=== PATIENT | female | born 1960 | race Asian ===

== ENCOUNTER 2018-10-08 06:15 | Inpatient (IN) | payer OTHER ==
[2018-09-20 09:37] LABS: ABSOLUTE EOSINOPHILS 0.1 thou/uL (0.0-0.7); ABSOLUTE LYMPHOCYTES 1.7 thou/uL (0.8-5.3); ABSOLUTE MONOCYTES 0.5 thou/uL (0.0-1.2); ABSOLUTE NEUTROPHILS 2.8 thou/uL (1.6-8.1); BASOPHILS 0.9 %; EOSINOPHILS 2.4 %; HEMATOCRIT 42.8 % (37.0-47.0); HEMOGLOBIN 14.5 gm/dL (12.0-15.0); LYMPHOCYTES 32.5 %; MCH 30.4 pg (26.0-34.0); MCHC 33.9 g/dL (28.0-37.0); MCV 89.8 fL (80.0-100.0); MONOCYTES 9.1 %; MPV 7.6 fl. (7.2-11.1); NUCLEATED RBCS 0 /100WBC; PLATELET COUNT* 275 thou/uL (150-400); POLYS 55.1 %; RBC 4.77 mil/uL (4.20-5.00); RDW-CV 12.9 % (10.5-14.5); WBC 5.1 thou/uL (4.0-11.0)
[2018-09-20 09:42] LABS: CALCIUM 8.9 mg/dL (8.5-10.1); POTASSIUM 3.8 mmol/L (3.5-5.1)
[2018-09-20 09:43] LABS: APTT 28.5 Seconds (25.0-31.3)
[2018-09-20 09:52] LABS: ALBUMIN 3.5 g/dL (3.4-5.0); TOTAL BILIRUBIN 0.4 mg/dL (<0.1-1.0); TOTAL PROTEIN 7.4 g/dL (6.4-8.2)
[2018-09-20 10:36] LABS: ESR (SEDRATE) 27 mm/hr (0-30)
--- NOTE | 2018-09-20 12:24 | EKG ---
[place] [address] ELECTROCARDIOGRAM REPORT Name: KELLY NELSON Room: PRE [facility].R.#: [id number] Admission: Attend Phys: Skyler Messina DO Discharge: Date of : 60 Report #: [id number] THIS REPORT FOR: //name// [facility] Test Date: 2018-09-20 Test Time: 09:36:45 Pat Name: KELLY NELSON Department: Room: Gender: F Content Administrator: : 1960 Requested By: Skyler Messina Order Number: [id number] Reading MD: Skyler Trevizo Measurements Intervals [place] Rate: 74 P: 46 NE: 166 QRS: 75 QRSD: 80 T: 20 QT: 378 QTc: 420 Interpretive Statements Sinus rhythm No previous ECG available for comparison Electronically Signed On 09-20-2018 12:24:29 OPERATING ROOM SURGICAL TECHNICIAN by Skyler Trevizo [email or web address] <ELECTRONICALLY SIGNED> By: Skyler Trevizo MD, [facility] 09/20/18 1224 0936 0936 Skyler Trevizo MD, FACC /EPI
[2018-09-20 21:07] LABS: GLYCOHEMOGLOBIN (HGB A1C) 5.4 % (4.8-5.6)
[~2018-10-08] VITALS: Ht 165.1 cm; Wt 136.5 kg
[2018-10-08 06:45] VITALS: BP 147/90
[2018-10-08 11:29] VITALS: BP 166/79
[2018-10-08 17:09] VITALS: BP 135/65
--- NOTE | 2018-10-08 19:07 | NUR ---
PATIENT ARRIVED TO UNIT AT 1115. ALERT AND ORIENTED X4. IV IS PATENT AND INFUSING. PAIN BEING MANAGED WITH MEDICATION GIVEN IN PACU. ANABELL HOSE IN PLACE. CAP-NO IN PLACE. POLAR CARE IN PLACE. VSS ON 3L O2. CALL LIGHT IS WITHIN REACH. NURSING WILL CONTINUE TO MONITOR.
--- NOTE | 2018-10-08 19:09 | NUR ---
ALERT AND ORIENTED X4. UP WITH ASSIST X1 WITH WALKER AND GAIT BELT. IV IS PATENT AND INFUSING. PAIN BEING MANAGED WITH PO PAIN MEDICATION. DENIES NAUSEA. TOLERATING DIET. ATTENDED PHYSICAL THERAPY THIS AFTERNOON. ANABELL HOSE IN PLACE BILATERALLY. CAP-NO IN PLACE. POLAR CARE IN PLACE. CPM IN ROOM. VSS ON ROOM AIR. HOURLY ROUNDS HAVE BEEN MAINTAINED THROUGHOUT SHIFT. CALL LIGHT IS WITHIN REACH. NURSING WILL CONTINUE TO MONITOR.
[2018-10-09] VITALS (7 sets, daily range): BP systolic 111–136; BP diastolic 56–76
[2018-10-09 04:37] LABS: HEMATOCRIT 36.7 % (37.0-47.0); HEMOGLOBIN 12.5 gm/dL (12.0-15.0)
--- NOTE | 2018-10-09 06:16 | NUR ---
PATIENT HAS SLEPT WELL THROUGHOUT MOST OF THE NIGHT. PAIN WELL CONTROLLED WITH ORAL PAIN MEDICATION AND CHARTED. VSS ON 3L02 VIA NASAL CANNULA AND CAPNO IN PLACE. DRESSING TO LEFT KNEE IS C/D/I, SCD'S, ANABELL HOSE AND POLAR CARE IN PLACE. PATIENT REFUSED CPM IN THE EVENING. PATIENT IS UP WITH ASSIST X 1 WITH GAITBELT AND WALKER TO [facility]. PATIENT INSTRUCTED TO USE CALL LIGHT WHEN NEEDING ASSISTANCE. HOURLY ROUNDS MADE. WILL CONTINUE WITH PLAN OF CARE AND NURSING TO MONITOR.
--- NOTE | 2018-10-09 11:15 | NUR ---
CALLED IN PRESCRIPTION FOR ELIQUIS, WRITTEN, TO PT.S PHARMACY. WILL CALL BACK IN ONE HR.TO GET COPAY.
--- NOTE | 2018-10-09 13:32 | NUR ---
PT.RESTING,WAITING FOR AFTERNOON THERAPY. [facility] SAID DYLON ROSE IS $35. RELAYED THIS TO PT. SHE UNDERSTANDS TO PICK IT UP AT PHARMACY AND SHE WILL BE GIVEN PRESCRIPTIONS FOR PAIN MEDS AT DISCHARGE. PT.HAS A FRONT WHEEL WALKER IN ROOM FROM HOME. SHE IS AWARE OF CPM AND POLAR PACK. SHE WOULD LIKE HOME HEALTH AT DISCHARGE. SHE CHOSE [facility] FOR HOME HEALTH. SHE SAID SHE HAS A F/U APPT.WITH IN 2 WEEKS. SHE SAID SHE THINKS HER BATHROOM IS FURTHER AWAY FROM HER LIVING ROOM THAN SHE IS WALKING YET. SHE SAID THEY DO HAVE A WC THAT SHE COULD HAVE SOMEONE PUSH HER IN 1/2 WAY TO THE RESTROOM AND THEN SHE COULD WALK THE REST OF THE WAY. SHE IS HOPING ON GOING HOME TODAY. FAXED REFERRAL AND DISCHARGE ORDERS TO [facility].
[2018-10-09] MEDS ORDERED: NORCO 5-325 TA1 EACH PO (15:44)
[2018-10-09] MEDS ORDERED: ROXICODONE5 M2 PO (15:50)
[2018-10-09] MEDS ORDERED: ELIQUIS2.5 MG PO (15:52)
[2018-10-09] MEDS ORDERED: COLACE100 MG PO (15:54)
[2018-10-09] MEDS ORDERED: MIRALAX17 GM PO (15:55)
--- NOTE | 2018-10-09 17:49 | NUR ---
RECIEVED O.T. EVAL AND TX ORDERS. WILL DEFER TO P.T. AND NURSING AT THIS TIME. PLEASE ORDER FURTHER O.T. SERVICES IF NEEDED.
--- NOTE | 2018-10-09 17:50 | NUR ---
PT IS ALERT AND ORIENTED X 4. RECEIVED PO OXYCONDONE FOR LEFT KNEE PAIN. DENIES NAUSEA. PARTICIPATED WITH THERAPY DURING DAY. UP TO BSC WITH ASSIST X 1 WITH GAIT BELT AND WALKER. MEPILEX DRESSING-C/D/I. ANABELL HOSE IN PLACE. PT USING A POLAR PACK ON LEFT KNEE. USED CPM X 2 DURING DAY PRIOR TO DISCHARGE. IV REMOVED. DISCHARGE INSTRUCTION GIVEN ALONG WITH PRESCRIPTIONS. PT LEFT UNIT WITH PERSONAL BELONGINGS IN A WHEELCHAIR WITH NURSING STAFF TO LEAVE WITH SPOUSE BY PRIVATE CAR @ 6714.
--- NOTE | 2018-10-11 06:53 | OP ---
[address] [address] OPERATIVE REPORT Name: OMARKELLY Esquivel Room: [address]#: [id number] Admission: 10/08/18 Attend Phys: Mandy Dumont Discharge: 10/09/18 Date of : 60 Report #: [id number] THIS REPORT FOR: //name// CC: Skyler Messina [facility] physician/PCP Danny Elliott DATE OF SERVICE: 10/08/2018 PREOPERATIVE DIAGNOSES: 1. Advanced degenerative joint disease of the left knee. 2. Morbid obesity with body mass index of 46. POSTOPERATIVE DIAGNOSES: 1. Advanced degenerative joint disease of the left knee. 2. Morbid obesity with body mass index of 46. PROCEDURE: Left total knee arthroplasty. SURGEON: Skyler Messina DO. SPINNER BOX: Georges Peña DO. ESTIMATED BLOOD LOSS: 200 mL. TOURNIQUET TIME: Approximately 55 minutes. ANTIBIOTICS: Clindamycin 900 mg IV preoperatively. ORTHOPEDIC IMPLANTS: Yoly total knee arthroplasty system: 1. Size 8 narrow cruciate-retaining femur. 2. Size D tibial baseplate. 3. A 10-mm medial congruent spacer. 4. A 32-mm patella. 5. Two bags of Biomet bone cement plain. ANESTHESIA: General. SPECIMEN REMOVED: None. DRAINS: None. CONDITION OF THE PATIENT: Stable to PACU. INDICATIONS FOR PROCEDURE: The patient is a pleasant 58-year-old female seen in my clinic for chronic history of left knee pain. She has unfortunately failed [facility] [address] [place] [address] OPERATIVE REPORT Name: KELLY NELSON KURT Room: [address] IN M.R.#: [id number] Admission: 10/08/18 Attend Phys: Mandy Dumont Discharge: 10/09/18 Date of : 60 Report #: [id number] extensive conservative care, including multiple arthroscopies years ago as well as activity modification and anti-inflammatories and steroid injections. X-rays were consistent with degenerative joint disease. Due to failed conservative treatment, I discussed potential benefit of left total knee arthroplasty. I discussed procedure, risks, benefits, complications and indications in detail with her. Risks discussed included, but not limited to infection, neurovascular injury, continued worsening pain, need for further surgery, DVT, PE, hardware failure, fracture and/or anesthesia complications. She did express understanding and wished to proceed with surgery. DESCRIPTION OF PROCEDURE: After consent was obtained, the patient was taken to the operative suite and placed in supine position on the operating room table. She was given the benefit of general anesthesia. A well-padded tourniquet was placed on the left upper thigh. Left leg was sterilely prepped and draped in usual fashion. Preoperative timeout was obtained to confirm the correct patient, procedure and operative site. The leg was elevated, tourniquet was inflated to 300 mmHg. A standard anterior knee midline incision was made. Sharp dissection was taken down to the level of the capsule. New knife was used and a medial parapatellar arthrotomy was performed. She had normal-appearing joint effusion. Upon exposure of the knee, she did have severely eburnated bone throughout all 3 compartments. Femoral drill was used to open the femoral canal. T-handle and intramedullary rosario were placed, measuring 5-degree valgus cut. The distal femoral cut was made to the captured block. AP sizer was placed on the distal femur and this measured size 8. Two ems helicopter pilot holes were drilled in 3 degrees of external rotation. The size 8, 4-in-1 cutting block was then pinned in place and anterior and posterior condylar cuts as well as chamfer cuts were then made. Posterior osteophytes were removed with curved osteotome and rongeur. Proximal tibia was then exposed. The proximal tibial cut was made through the captured block. This measured size D. The size D tibial trial was pinned in place with appropriate rotation. The trial femur was placed, size 10 spacer was placed. Knee was taken through range of motion. She had full flexion and extension. Flexion was limited by her soft tissues. The knee was ligamentously stable. Patella was everted. Posterior patellar cut was made using freehand technique. This measured size 32. Three peg holes were drilled, size 32 button was placed. Knee was taken through range of motion. The patella did track well. At this time, the trial femur and spacer were removed. Proximal tibia was opened with a drill and punch. All the trial components were removed. The knee was thoroughly irrigated with pulsatile lavage and dried with a clean lap sponge. At this time, cement was mixed and placed on the final components and exposed bone. The components were then impacted into place. Excess cement was removed. Size 10 spacer was placed. Knee was taken through extension. Axial compression was applied until the cement hardened. Once the cement hardened, [address] [address] OPERATIVE REPORT Name: KELLY NELSON Room: [address] IN M.R.#: [id number] Admission: 10/08/18 Attend Phys: Mandy Dumont Discharge: 10/09/18 Date of : 60 Report #: [id number] trial reduction was performed and a final size 10 spacer was chosen. This was placed on a clean tibial tray and locked in place. Audible click was heard. The knee was taken through a final range of motion. She had full flexion and extension, limited by soft tissues posteriorly. Otherwise, the knee was ligamentously stable throughout range of motion and the patella did track well. At this time, the tourniquet was deflated at approximately 55 minutes. Hemostasis was achieved with electrocautery and direct pressure. Ortho cocktail was injected. The knee was thoroughly irrigated with pulsatile lavage. The capsular tissue was closed with #1 Vicryl in a [id number] fashion. PRP was injected into the capsule. The knee was again thoroughly irrigated. Subcutaneous tissue was closed with 2-0 Vicryl in inverted interrupted fashion, followed by teresa on the skin. This was covered with Mepilex silver dressing and sterile bandage. She did tolerate the procedure well, without complications. She was taken to the recovery room in stable condition. All needle and sponge counts were correct x 2 at the end of the procedure. <ELECTRONICALLY SIGNED> By: Michael Anderson DO 10/11/18 0653 0927 [id number] Messina DO /betzy
== END 2018-10-09 17:05 | disposition home health service (06) | DRG 470 ==
LOC: M.SUR 06:15 → M.ORTHSURG 09:19 → M.SUR 09:25 → M.ORTHSURG 10-09 17:05
PROVIDERS: Orthopaedic Surgery; ADMIT Internal Medicine
PROC: 0SRD0J9 Replacement of Left Knee Joint with Synthetic Substitute, Cemented, Open Approach (ICD-10-PCS; principal; 2018-10-08)
DX: M17.12 Unilateral primary osteoarthritis, left knee (principal); Z68.42 Body mass index [BMI] 45.0-49.9, adult; E66.01 Morbid (severe) obesity due to excess calories; Z88.0 Allergy status to penicillin; Z90.710 Acquired absence of both cervix and uterus; Z90.49 Acquired absence of other specified parts of digestive tract; Z87.891 Personal history of nicotine dependence

== ENCOUNTER → 2019-03-04 | Outpatient (CLI) | payer OTHER ==
[~2019-03-04] MED LIST: COLACE100 MG PO; ELIQUIS2.5 MG PO; MIRALAX17 GM PO; NORCO 5-325 TA1 EACH PO; ROXICODONE5 M2 PO
== END ==
LOC: M.MRI 16:06
DX: S73.101A Unspecified sprain of right hip, initial encounter (principal); M47.816 Spondylosis without myelopathy or radiculopathy, lumbar region; M48.061 Spinal stenosis, lumbar region without neurogenic claudication; M16.11 Unilateral primary osteoarthritis, right hip; M25.851 Other specified joint disorders, right hip; M25.751 Osteophyte, right hip; X58.XXXA Exposure to other specified factors, initial encounter; Y93.89 Activity, other specified; Y92.89 Other specified places as the place of occurrence of the external cause; Y99.8 Other external cause status

== ENCOUNTER 2019-04-29 06:14 | Inpatient (IN) | payer OTHER ==
[2019-04-18 09:06] LABS: ABSOLUTE EOSINOPHILS 0.1 thou/uL (0.0-0.7); ABSOLUTE LYMPHOCYTES 1.3 thou/uL (0.8-5.3); ABSOLUTE MONOCYTES 0.4 thou/uL (0.0-1.2); ABSOLUTE NEUTROPHILS 2.4 thou/uL (1.6-8.1); BASOPHILS 0.4 %; EOSINOPHILS 2.7 %; HEMATOCRIT 42.4 % (37.0-47.0); HEMOGLOBIN 14.3 gm/dL (12.0-15.0); LYMPHOCYTES 31.4 %; MCHC 33.7 g/dL (28.0-37.0); MONOCYTES 9.1 %; MPV 7.9 fl. (7.2-11.1); NUCLEATED RBCS 0 /100WBC; PLATELET COUNT* 254 thou/uL (150-400); POLYS 56.4 %; RBC 4.76 mil/uL (4.20-5.00); RDW-CV 13.9 % (10.5-14.5); WBC 4.3 thou/uL (4.0-11.0)
[2019-04-18 09:17] LABS: APTT 26.3 Seconds (25.0-31.3)
[2019-04-18 09:29] LABS: ALBUMIN 3.4 g/dL (3.4-5.0); CALCIUM 8.4 mg/dL (8.5-10.1); CREATININE 0.9 mg/dL (0.6-1.3); POTASSIUM 4.2 mmol/L (3.5-5.1); TOTAL BILIRUBIN 0.4 mg/dL (<0.1-1.0); TOTAL PROTEIN 7.3 g/dL (6.4-8.2)
[2019-04-18 10:50] LABS: ESR (SEDRATE) 28 mm/hr (0-30)
--- NOTE | 2019-04-19 11:05 | EKG ---
[place] [address] ELECTROCARDIOGRAM REPORT Name: KELLY DIOR Room: PRE IN [facility]#: [id number] Admission: Attend Phys: Mandy Dumont Discharge: Date of : 60 Report #: [id number] THIS REPORT FOR: //name// [facility] Test Date: 2019-04-18 Test Time: 09:11:44 Pat Name: KELLY DIOR Department: Room: Gender: F Software Development Coordinator: : 1960 Requested By: Skyler Messina Order Number: [id number] Reading MD: Skyler Trevizo Measurements Intervals [place] Rate: 73 P: 54 GA: 158 QRS: 61 QRSD: 80 T: 50 QT: 402 QTc: 443 Interpretive Statements Sinus rhythm Compared to ECG 09/20/2018 09:36:45 No significant changes Electronically Signed On 04-19-2019 11:05:03 CDT by Skyler Trevizo [email or web address] <ELECTRONICALLY SIGNED> By: Skyler Trevizo MD, [facility] 04/19/19 1105 0911 0911 Skyler Trevizo MD, FACC /EPI
[~2019-04-29] VITALS: Ht 165.1 cm; Wt 124.7 kg
--- NOTE | ~2019-04-29 | OP ---
[address] [address] OPERATIVE REPORT Name: KELLY DIOR KURT Room: [address] IN .R.#: [id number] Admission: 04/29/19 Attend Phys: Mandy Dumont Discharge: Date of : 60 Report #: [id number] THIS REPORT FOR: //name// CC: Skyler Messina [facility] physician/PCP Danny Elliott DICTATED BY: Neeraj Burnette DO DATE OF SERVICE: 04/29/2019 PREOPERATIVE DIAGNOSIS: Advanced degenerative joint disease of the right hip. POSTOPERATIVE DIAGNOSIS: Advanced degenerative joint disease of the right hip. PROCEDURE PERFORMED: Right total hip arthroplasty. SURGEON: Skyler Messina DO BAR CAPTAIN: Vicky Calix PA-C required for proper surgical site of retraction and final implantation. SECOND HEADLINER INSTALLER: Neeraj Burnette DO ANESTHESIA: General and local. ESTIMATED BLOOD LOSS: 500 mL with 200 mL of blood products returned via [employer]ver. SPECIMENS REMOVED: None. COMPLICATIONS: None. DRAINS: None. IMPLANTS USED: 1. Biomet total hip system with a size 52 G7 cup. 2. A high wall polyethylene insert for a 36-mm head. 3. A size 6 stem with a -3, size 36-mm ceramic head. INDICATIONS FOR PROCEDURE: The patient is a pleasant 59-year-old female with known advanced degenerative joint disease of the right hip. She attempted conservative treatment including injections, oral anti-inflammatories, activity modifications, home exercise for at least 4 months, and these did not provide her any relief. She was becoming more sedentary and her pain was affecting her ADLs. We discussed risks, benefits, complications, alternatives, indications [address] [address] OPERATIVE REPORT Name: KELLY DIOR KURT Room: [place] [address] ADM IN M.R.#: [id number] Admission: 04/29/19 Attend Phys: Mandy Dumont Discharge: Date of : 60 Report #: [id number] with her include, but are not limited to risk of infection, need for repeat surgery, leg length discrepancy, iatrogenic fracture requiring fixation, need for repeat surgeries, risks to nerves and vessels, postoperative numbness, blood loss requiring transfusion as well as other imponderables and risks associated with anesthesia, she voiced understanding and wished to proceed. DESCRIPTION OF PROCEDURE: The patient was seen in preoperative holding area. Correct operative site was marked. Verbal and written consent was obtained. She was transferred to the operative suite and placed supine on the operating table, given benefit of general anesthesia by the Anesthesia team. She was then properly secured to the Coden bed and the well-padded boots were placed on both lower extremities. The right hip was then prepped and draped in normal sterile fashion. A timeout was performed, all those in attendance were in agreement with correct operative site and procedure to be performed. A 10-blade scalpel was used to make a standard incision for an ASI approach to the right hip. This was taken down to the subdermal fat and then electrocautery was used to continue dissection down to the level of the tensor fascia. This was then bluntly exposed using a combination of a lap sponge and a Olvera elevator. We then used a new clean 10-blade scalpel to incise the fascia and then blunt dissection was used for interval to the ASI approach. We then appropriately placed retractors and visualized the circumflex vessels, which were then cauterized using the Aquamantys. The electrocautery was then used to incise these and then we thoroughly exposed the anterior capsule. Retractor was placed on the anterior aspect of the acetabulum and then the Aquamantys was once again used to cauterize the capsule. Electrocautery was then used to perform a capsulotomy and our retractors were placed appropriately from the superior and inferior necks. Once adequate exposure and hemostasis was maintained, we used an oscillating saw to perform our femoral neck cut. We then used the corkscrew device for removal of the femoral head. This was placed on the back table and retractors were replaced for visualization of the acetabulum. Soft tissue was removed from around the acetabulum, including the labrum utilizing the electrocautery and then a rongeur was used to remove osteophytes in superior and anterior aspects of the acetabulum. We then reamed the acetabulum starting with a 47 mm up to a 51 mm for a final 52-mm cup. Fluoroscopy was used to verify both depth and placement of the reamer and once reaming was confirmed to have good punctate bleeding, irrigation was performed and a 52-mm acetabular cup was malleted into place. Once again, used fluoroscopy to verify positioning of our cup and 2 appropriate length screws were placed into the ilium. The acetabular shell was then thoroughly irrigated and our high wall poly was malleted into place with our high wall at the superior anterior aspect of the acetabulum. We then turned attention to preparation of the femur. The femur was externally rotated to approximately 115 degrees, placed in extension and adduction. [address] [address] OPERATIVE REPORT Name: KELLY DIOR Room: [address] IN .Moisés.#: [id number] Admission: 04/29/19 Attend Phys: Mandy Dumont Discharge: Date of : 60 Report #: [id number] Appropriate retractors were used and the lift for the bed was attached and soft tissue releases were performed as necessary for visualization of the proximal femur. We then started with the box osteotome and then the rat tail rasp was used to verify calcar placement as well as lateralized for broach. We then placed a size 4 broach and a calcar reamer was used to plane the calcar. Once this was performed, we broached up to the appropriate size 6 stem and trialed a -6 head. The hip was reduced, taken through range of motion, and found to be overall stable. We then used fluoroscopy to verify leg lengths as well as positioning of our stem. The trial was then removed. The femur was thoroughly irrigated. A final size 6 stem was malleted into place, found to be secure. We elected to proceed with a final -3, 36-mm ceramic head and this was found in place, found to be stable. The hip was finally reduced and final x-rays were taken and saved to the chart. Hip was taken through range of motion, found to be stable, and the hip was then thoroughly irrigated with sterile saline. Local anesthetic was injected appropriately. The soft tissue surrounding the joint and the fascia was reapproximated utilizing a #1 barbed Quill suture and then the skin was closed using a 2-0 Vicryl in inverted subcuticular fashion, followed by running 3-0 Stratafix subcuticular. Exofin skin glue was placed on the incision, followed by sterile Mepilex dressing. The patient was awoken from anesthesia and transferred to PACU in stable condition. All needle and scrub counts were correct at the end of the case x 2. I attest Dr. Messina was present through all critical decision-making aspects of the case. By: [id number] Messina, DO /nt
[~2019-04-29 06:14] MED LIST changes: +NOHOMEMEDICATIONS
[2019-04-29 07:30] VITALS: BP 146/81
[2019-04-29 16:30] VITALS: BP 157/84
[2019-04-29 17:19] VITALS: BP 126/66
[2019-04-29 20:17] VITALS: BP 135/75
[2019-04-29 23:57] VITALS: BP 134/71
[2019-04-30 04:12] VITALS: BP 123/64
[2019-04-30 05:15] LABS: HEMATOCRIT 32.8 % (37.0-47.0); HEMOGLOBIN 11.1 gm/dL (12.0-15.0)
[2019-04-30 08:04] VITALS: BP 118/45
[2019-04-30] MEDS ORDERED: DOK PLUS TABLE1 EACH PO (10:34)
[2019-04-30] MEDS ORDERED: ELIQUIS5 MG PO (10:34)
[2019-04-30] MEDS ORDERED: TRAMADOL 50 MG50 MG PO (11:44)
[2019-04-30] MEDS ORDERED: OXYCODONE HCL 55 MG PO (11:45)
[2019-04-30 11:46] VITALS: BP 118/45
[2019-04-30] MEDS ORDERED: ASPIRIN325 PO (11:52)
== END 2019-04-30 14:30 | disposition home or self-care (01) | DRG 470 ==
LOC: M.ORTHSURG 06:14 → M.TBA 06:14 → M.PRE 09:16 → M.ORTHSURG 11:57 → M.PRE 16:00 → M.ORTHSURG 04-30 14:30
PROVIDERS: Orthopaedic Surgery; ADMIT Internal Medicine
PROC: 0SR903Z Replacement of Right Hip Joint with Ceramic Synthetic Substitute, Open Approach (ICD-10-PCS; principal; 2019-04-29)
DX: Z96.652 Presence of left artificial knee joint (principal); M16.11 Unilateral primary osteoarthritis, right hip; Z88.0 Allergy status to penicillin; Z90.49 Acquired absence of other specified parts of digestive tract; Z90.710 Acquired absence of both cervix and uterus; Z87.891 Personal history of nicotine dependence

== ENCOUNTER → 2021-02-12 | Outpatient (CLI) | payer OTHER ==
[~2021-02-12] MED LIST changes: +ASPIRIN325 PO; +DOK PLUS TABLE1 EACH PO; +ELIQUIS5 MG PO; +OXYCODONE HCL 55 MG PO; +TRAMADOL 50 MG50 MG PO
== END ==
LOC: M.RAD 09:38
PROVIDERS: ATTEND Specialist
DX: Z12.31 Encounter for screening mammogram for malignant neoplasm of breast (principal); N64.89 Other specified disorders of breast